=== PATIENT | female | born 1985 | race Caucasian/White ===

== ENCOUNTER 2021-03-13 21:16 | Emergency (ER) | payer SELFPAY ==
[2021-03-13 21:37] VITALS: BP 166/112; PULSE 105; RESP 16; TEMP 36.9; O2SAT 99; BMI 30.8
--- NOTE | 2021-03-13 21:50 | XRR_ITS ---
PROCEDURE INFORMATION: Exam: XR Right Ankle Exam date and time: 03/13/2021 9:50 PM Age: 35 years old Clinical indication: Injury or trauma; Fall; Swelling (edema); Ankle; Right; Additional info: Pain, swelling, trauma TECHNIQUE: Imaging protocol: XR Right ankle. Views: 3 or more views. COMPARISON: No relevant prior studies available. FINDINGS: Bones/joints: No fracture or dislocation. Soft tissues: Prominent lateral soft tissue swelling. Soft tissue swelling in the anterior ankle/foot region, also. XR/XR ankle RT min 3V* [id number] IMPRESSION: No fracture. Soft tissue swelling. Radiation Dose CTDIVOL = (mGy): DLP = (mGy-cm)
--- NOTE | 2021-03-13 21:54 | W.ED.EXTPRO ---
HPI - Extremity Problem General: Chief complaint: Extremity Injury, Lower Stated complaint: R luke injury Time Seen by Provider: 03/13/21 21:42 History of Present Illness: HPI Narrative: Complains about right ankle pain after twisting it today. MD Complaint: joint swelling and joint pain Onset (ago): hour(s) Pain Consistency: constant Location: right and lower extremity Severity scale (1-10): 4 Quality: aching Radiation: none Relieving factors: immobilization Exacerbating factors: range of motion and weight bearing Associated symptoms: Reports no associated symptoms; Deny chest pain, fever(s) or rash Review of Systems Const: Denies: fever(s), chills or body aches Eyes: Denies: change in vision or blurry vision ENMT: Denies: throat pain or nasal congestion Card: Denies: chest pain or dyspnea on exertion Resp: Denies: dyspnea, productive cough or non-productive cough GI: Denies: abdominal pain, nausea or vomiting Musc: Reports: joint pain and joint swelling (Right ankle after twisting it today); Denies: extremity pain Skin/Breast: Denies: rash Neuro: Denies: headache(s) Psych: Denies: anxiety or depression [place]/Lymph: Denies: easy bruising Physical Exam Const: COMMON NORMALS: no acute distress GENERAL APPEARANCE: cooperative Extremity: RIGHT LOWER EXTREMITY: Yes foot & digits (Lateral malleus swelling and tenderness.) Right ankle: Yes neurovascular exam (Intact.) Psych: COMMON NORMALS: mental status grossly normal Course Vital Signs: Vital signs: Vital Signs Temperature 98.4 F 03/13/21 21:37 Pulse Rate 105 H 03/13/21 21:37 Respiratory Rate 16 03/13/21 21:37 Blood Pressure 166/112 03/13/21 21:37 Pulse Oximetry 99 03/13/21 21:37 Coding Level of Care Code ED Parachute Supervisor for Latrice Alejandra
== END 2021-03-13 22:30 | disposition home or self-care (01) ==
PROVIDERS: Emergency Provider Nurse Practitioner Family
DX: S99.911A Unspecified injury of right ankle, initial encounter (principal); X50.1XXA Overexertion from prolonged static or awkward postures, initial encounter
CPT/HCPCS: 73610; 99282

== ENCOUNTER 2021-12-22 06:15 | Emergency (ER) | payer SELFPAY ==
[2021-12-22 05:56] VITALS: BP 155/107; PULSE 116; RESP 18; TEMP 37.1; O2SAT 98; BMI 29.6
[2021-12-22 06:27] LABS: Basophils % 0.5 %; Eosinophils % 0.9 %; Hemoglobin 11.6 g/dL (11.5-15.3); Lymphocytes # 1.3 10^3/uL (0.8-4.8); Lymphocytes % 29.2 %; Mean Corpuscular HGB Conc 33.1 g/dL (30.0-36.0); Mean Corpuscular Hemoglobin 30.5 pg (28.0-34.0); Mean Corpuscular Volume 92.1 fl (81-99); Mean Platelet Volume 11.1 fL (7.4-10.4); Monocytes # 0.3 10^3/uL (0.2-0.9); Neutrophils # 2.66 10^3/uL (1.8-7.7); Neutrophils % 62.2 %; Nucleated Red Blood Cells % 0 %; Platelet Count 136 10^3/cmm (130-400); Red Cell Distribution Width 16.7 % (12.1-15.1); White Blood Count 4.3 10^3/uL (4.0-10.0)
--- NOTE | 2021-12-22 06:30 | ED.C_ITS ---
HPI - Psych General: Chief Complaint: Psychiatric Symptoms Stated Complaint: psychiatric Source: patient Mode of arrival: EMS Limitations: no limitations History of Present Illness: 36-year-old female brought in by EMS with hallucinations after using methamphetamines. She not used for several years this was the first time. Initially she was having auditory hallucinations and rambling. She denies any suicidal or homicidal intent. She denies using any other medications no injuries. Duration: intermittent Relieving factors: none Exacerbating factors: none Context: recent drug abuse Associated psychiatric symptoms: auditory hallucinations Associated symptoms: Deny homicidal ideation or suicidal ideation Treatments prior to arrival: none Review of Systems Const: Denies: fever(s), chills, body aches, change in appetite, fatigue or malaise ENMT: Denies: throat pain, ear or mastoid pain, nasal discharge or nasal congestion Card: Denies: chest pain, edema, dyspnea on exertion or orthopnea Resp: Denies: dyspnea, productive cough or non-productive cough GI: Denies: abdominal pain, nausea, vomiting, hematemesis, coffee ground emesis, diarrhea, constipation, bloating, hematochezia or melena : Denies: flank pain, difficulty voiding, dysuria, urinary frequency or urinary urgency Skin/Breast: Denies: rash or pruritus Psych: Denies: suicidal ideation or homicidal ideation PFS ED PFSH: Social History (Updated 12/27/21 @ 15:34 by Mayur Sosa DO) Smoking and tobacco status: current every day smoker Alcohol intake: current Substance/Drug Use: current Substance/Drug use frequency: Special occassions/opportunity only Substance/Drug use type: Methamphetamine Physical Exam Const: COMMON NORMALS: no acute distress GENERAL APPEARANCE: cooperative and comfortable ORIENTATION/CONSCIOUSNESS: Yes awake, Yes oriented to person, Yes oriented to place and Yes oriented to time HENMT: COMMON NORMALS: normocephalic and atraumatic HEAD & SCALP: normocephalic and atraumatic Neck/C-Spine: COMMON NORMALS: no JVD Lymph: LYMPHATIC: no lymphadenopathy noted and no lymphedema noted Resp: COMMON NORMALS: normal respiratory effort, No retractions, No use of accessory muscles and clear to auscultation bilaterally AUSCULTATION: clear to auscultation bilaterally Cardio: COMMON NORMALS: no JVD, regular rate, regular rhythm and No murmurs present (Cardio) RATE: regular rate RHYTHM: regular rhythm GI: COMMON NORMALS: Soft to palpation and No hepatosplenomegaly present AUSCULTATION: Yes normoactive bowel sounds PALPATION: Yes Soft to palpation, No Tenderness to palpation present (GI), No Guarding due to palpation present (GI) and Yes No hepatosplenomegaly present Extremity: COMMON NORMALS: normal to inspection, capillary refill normal, no clubbing, cyanosis or edema, no calf tenderness and no pedal edema Neuro: SENSORIUM/ORIENTATION: Yes oriented to person, Yes oriented to place and Yes oriented to time Skin: COMMON NORMALS: no rashes or lesions noted GENERAL SKIN EXAM: no rashes or lesions noted Course Vital Signs: Vital signs: Vital Signs Temperature 98.7 F 12/22/21 05:56 Pulse Rate 109 H 12/22/21 07:40 Respiratory Rate 18 12/22/21 05:56 Blood Pressure 149/99 12/22/21 07:40 Pulse Oximetry 99 12/22/21 07:40 [facility] - Psych Medical Decision Making Acute drug-induced psychosis. Started begun to improve she is also hypokalemic which were treated here. We will discharge her home encourage stops using methamphetamines. Medical Records I reviewed the patient's medical records. Lab Data : 12/22/21 06:05 12/22/21 06:05 Laboratory Results WBC 4.3 10^3/uL (4.0-10.0) 12/22/21 06:05 RBC 3.80 10^6/uL (4.1-5.3) L 12/22/21 06:05 Hgb 11.6 g/dL (11.5-15.3) 12/22/21 06:05 Hct 35.0 % (37.0-47.0) L 12/22/21 06:05 MCV 92.1 fl (81-99) 12/22/21 06:05 MCH 30.5 pg (28.0-34.0) 12/22/21 06:05 MCHC 33.1 g/dL (30.0-36.0) 12/22/21 06:05 RDW 16.7 % (12.1-15.1) H 12/22/21 06:05 Plt Count 136 10^3/cmm (130-400) 12/22/21 06:05 MPV 11.1 fL (7.4-10.4) H 12/22/21 06:05 Neut % (Auto) 62.2 % 12/22/21 06:05 Lymph % (Auto) 29.2 % 12/22/21 06:05 [place] % (Auto) 7.0 % 12/22/21 06:05 Eos % (Auto) 0.9 % 12/22/21 06:05 Baso % (Auto) 0.5 % 12/22/21 06:05 Neut # (Auto) 2.66 10^3/uL (1.8-7.7) 12/22/21 06:05 Lymph # (Auto) 1.3 10^3/uL (0.8-4.8) 12/22/21 06:05 [place] # (Auto) 0.3 10^3/uL (0.2-0.9) 12/22/21 06:05 Eos # (Auto) 0.0 10^3/uL (0.0-0.8) 12/22/21 06:05 Baso # (Auto) 0.0 10^3/uL (0.0-0.1) 12/22/21 06:05 Nucleated RBC % (auto) 0 % 12/22/21 06:05 Nucleated RBCs # 0.0 /100WBC 12/22/21 06:05 Sodium 135 mmol/L (136-145) L 12/22/21 06:05 Potassium 2.8 mmol/L (3.5-5.1) L* 12/22/21 06:05 Chloride 102 mmol/L (98-107) 12/22/21 06:05 Carbon Dioxide 23 mmol/L (22-29) 12/22/21 06:05 Anion Gap 12.8 (5-19) 12/22/21 06:05 BUN 8 mg/dL (6-20) 12/22/21 06:05 Creatinine 0.7 mg/dL (0.5-0.9) 12/22/21 06:05 GFR Calculation 93.6 mL/min (90-130) 12/22/21 06:05 Glucose 92 mg/dL (65-115) 12/22/21 06:05 Calculated Osmolality 278 mOsm/kg (285-295) L 12/22/21 06:05 Calcium 8.2 mg/dL (8.5-10.5) L 12/22/21 06:05 Total Bilirubin 0.6 mg/dL (0.15-1.2) 12/22/21 06:05 AST 60 U/L (0-32) H 12/22/21 06:05 ALT 45 U/L (0-33) H 12/22/21 06:05 Alkaline Phosphatase 73 IU/L (35-105) 12/22/21 06:05 Total Protein 5.9 g/dL (6.6-8.7) L 12/22/21 06:05 Albumin 3.6 g/dL (3.5-5.2) 12/22/21 06:05 Globulin 2.3 g/dL (1.3-4.6) 12/22/21 06:05 TSH 2.42 uIU/mL (0.27-4.20) 12/22/21 06:05 HCG, Qual Negative (Negative) 12/22/21 06:05 Salicylates < 0.3 mg/dL (3-10) L 12/22/21 06:05 Acetaminophen < 5.0 ug/mL (10-30) L 12/22/21 06:05 Ethyl Alcohol < 10 mg/dL (0-10) 12/22/21 06:05 Discharge Plan Discharge Patient Disposition: Home Clinical Impression: Drug-induced psychotic disorder, Methamphetamine use, Hypokalemia Condition: Stable Discharge Orders: Discharge ED (Routine); Ordered 12/22/21 Ordered By: Mayur Sosa Referrals: Arlene Romo FNP [Primary Care Provider] - Discharge Diet: Usual diet Discharge Activity: Increase activity as tolerated Patient Instructions: Methamphetamine Abuse, Methamphetamine Use Disorder (ED), Opioid Safety Activity Restrictions/Additional Instructions: Abstain from the use of marijuana and methamphetamines Coding Level of Care Code ED Wire Mesh Gate Assembler for Latrice Alejandra
[2021-12-22 06:44] LABS: HCG, Serum Qual Negative (Negative)
[2021-12-22 06:47] LABS: Alanine Aminotransferase 45 U/L (0-33); Albumin Level 3.6 g/dL (3.5-5.2); Alkaline Phosphatase 73 IU/L (35-105); Anion Gap 12.8 (5-19); Aspartate Amino Transferase 60 U/L (0-32); Blood Urea Nitrogen 8 mg/dL (6-20); Calcium 8.2 mg/dL (8.5-10.5); Carbon Dioxide 23 mmol/L (22-29); Chloride 102 mmol/L (98-107); Globulin 2.3 g/dL (1.3-4.6); Glomerular Filtration Rate 93.6 mL/min (90-130); Glucose 92 mg/dL (65-115); Osmolality Calculated 278 mOsm/kg (285-295); Sodium 135 mmol/L (136-145); Thyroid Stimulating Hormone 2.42 uIU/mL (0.27-4.20); Total Bilirubin 0.6 mg/dL (0.15-1.2); Total Protein 5.9 g/dL (6.6-8.7)
--- NOTE | 2021-12-22 06:54 | PC.PHAR ---
UNABLE TO VERIFY MEDICATIONS WITH PT-EXT MED HISTORY SHOWS PRILOSEC 20MG DAILY FILLED ON 08/11/21 90D/S-DICYCLOMINE 10MG QID FILLED ON 08/11/21 30D/S-LEXAPRO 10MG DAILY FILLED ON 08/11/21 90D/S AND OXYCODONE IR 5MG FILLED 09/08/21 3D/S
[2021-12-22 07:09] LABS: Acetaminophen < 5.0 ug/mL (10-30); Alcohol Level < 10 mg/dL (0-10); Potassium 2.8 mmol/L (3.5-5.1); Salicylate < 0.3 mg/dL (3-10)
[2021-12-22] MEDS: potassium chloride oral liq 20 mEq/15 mL UDC 60 MEQ PO (07:27)
[2021-12-22] MEDS: LORazepam 2 mg Tablet PO (07:27)
[2021-12-22] MEDS: OLANZapine 5 mg TABLET PO (07:28)
[2021-12-22 07:40] VITALS: BP 149/99; PULSE 109; O2SAT 99
== END 2021-12-22 07:44 | disposition home or self-care (01) ==
PROVIDERS: Emergency Provider Family Medicine; PCP Registered Nurse
DX: F15.959 Other stimulant use, unspecified with stimulant-induced psychotic disorder, unspecified (principal); E87.6 Hypokalemia; F17.210 Nicotine dependence, cigarettes, uncomplicated
CPT/HCPCS: 80053; 80307; 84443; 84703; 85025; 99283